=== PATIENT | male | born 1945 | race Caucasian/White ===

== ENCOUNTER 2017-04-04 20:12 | Inpatient (IN) | payer OTHER ==
[~2017-04-04] VITALS: Ht 190.5 cm; Wt 112.2 kg
[2017-04-04 22:19] LABS: Basophils # (auto) 0.1 uL; Basophils % (auto) 0.4 % (0.0-2.0); Eosinophils # (auto) 0 uL; Hematocrit 45.4 % (41.0-53.0); Hemoglobin 15.1 g/dL (13.5-17.5); Lymphocytes # (auto) 1.8 uL; Lymphocytes % (auto) 9.6 % (10.0-50.0); Mean Corpuscular Hemoglobin 29.7 pg (28.0-32.0); Mean Corpuscular Hgb Conc. 33.2 g/dL (32.0-36.0); Mean Corpuscular Volume 89.5 fL (80.0-100.0); Mean Platelet Volume 8.4 fL (6.9-10.8); Monocytes # (auto) 1.3 uL; Monocytes % (auto) 7.1 % (0.0-12.0); Neutrophils # (auto) 15.8 uL; Neutrophils % (auto) 82.9 % (37.0-80.0); Nucleated Red Blood Cells % 0.1 %; Platelet Count (auto) 200 10^3/uL (140-450); Red Cell Distribution Width 14.1 % (11.8-14.3)
[2017-04-04 22:40] LABS: Chloride 107 mmol/L (98-107); Potassium 3.6 mmol/L (3.5-5.1); Sodium 139 mmol/L (136-145)
[2017-04-04] MEDS ORDERED: SODIUM CHLORIDE 0.9% 1,000 ML IV ONE (22:45)
[2017-04-04 22:46] LABS: Albumin 3.8 g/dL (3.4-5.0); Anion Gap 8 (5-15); Aspartate Aminotransferase 9 U/L (15-37); Blood Urea Nitrogen 23 mg/dL (7-18); Calcium 8.8 mg/dL (8.5-10.1); Carbon Dioxide 24 mmol/L (21-32); GFR African American 62 mL/min; GFR Non-African American 51 mL/min; Glucose 118 mg/dL (74-106); Magnesium 2.3 mg/dL (1.6-2.6)
[2017-04-04 22:47] LABS: INR 1.13 (0.9-1.15); Partial Thromboplastin Time 26.9 sec (22.64-33.71); Prothrombin Time 12.3 sec (9.37-12.3)
[2017-04-04 22:51] LABS: Alkaline Phosphatase 75 U/L (45-117); Bilirubin, Total 1.5 mg/dL (0.2-1.0); Total Protein 7.8 g/dL (6.4-8.2)
[2017-04-05] MEDS ORDERED: SODIUM CHLORIDE 0.9% 1,000 ML IV SCH (07:32)
[2017-04-05] MEDS ORDERED: TEMAZEPAM 15 MG CAP PO PRN (07:45)
[2017-04-05] MEDS ORDERED: ONDANSETRON HCL 4 MG/2 ML VIAL IV PRN (07:45)
[2017-04-05] MEDS ORDERED: cloNIDine HCL 0.1 MG TAB PO PRN (07:45)
[2017-04-05] MEDS ORDERED: DEXTROSE (50%) 50ML SYRG IV PRN (07:45)
[2017-04-05] MEDS ORDERED: HYDROcodone-ACET 5/325MG TAB PO PRN (07:45)
[2017-04-05] MEDS ORDERED: NITROGLYCERIN 0.4 MG SL TAB SL PRN (07:45)
[2017-04-05] MEDS ORDERED: ACETAMINOPHEN 325 MG TAB PO PRN (07:45)
[2017-04-05] MEDS ORDERED: MORPHINE SULF INJ 2 MG/ML SYRINGE 1ML IV PRN ×2 (07:45)
[2017-04-05] MEDS ORDERED: SODIUM CHLORIDE 0.9% 500 ML IV ONE (07:45)
[2017-04-05] MEDS: LEVOFLOXACIN 500MG 100 ML IV SCH ×2 (09:05→10:00)
[2017-04-05] MEDS: SODIUM CHLORIDE 0.9% 1,000 ML IV SCH ×2 (09:05→23:46)
[2017-04-05 10:13] VITALS: BP 145/61
[2017-04-05] MEDS: LISINOPRIL 10 MG TAB PO SCH (10:16)
[2017-04-05] MEDS: PANTOPRAZOLE 40 MG TAB PO SCH (10:16)
[2017-04-05] MEDS: ENOXAPARIN SOD 40 MG/0.4 ML SYRINGE SC SCH (10:17)
[2017-04-05] MEDS: ASPirin 81 mg TAB PO SCH (10:17)
[2017-04-05 10:22] VITALS: BP 145/61
[2017-04-05] MEDS: InsuLIN REG 1unit/0.01ml Soln (100units/ml) SC SCH ×3 (10:55→23:47)
[2017-04-05] MEDS: ACCU-CHEK COMFORT CURVE STRIP VI SCH ×3 (10:55→23:47)
[2017-04-05 13:00] VITALS: BP 146/55
[2017-04-05] MEDS ORDERED: BUPR100T14 PO (13:24)
[2017-04-05] MEDS ORDERED: CLON2TAB3 PO (13:28)
[2017-04-05] MEDS ORDERED: LOVA40TA72 PO (13:28)
[2017-04-05] MEDS ORDERED: GLIP-115 PO (13:28)
[2017-04-05] MEDS ORDERED: CINN500T PO (13:28)
[2017-04-05] MEDS ORDERED: TERA1CAP33 PO (13:28)
[2017-04-05] MEDS ORDERED: ASPI81TA27 PO (13:28)
[2017-04-05] MEDS ORDERED: CAPT12.52 PO (13:28)
[2017-04-05] MEDS ORDERED: METF-370 PO (13:28)
[2017-04-05 14:58] LABS: Urine Bilirubin Negative (Negative); Urine Blood 3+ /uL (Negative); Urine Color PINK (Yellow); Urine Glucose Normal (Normal); Urine Ketone Negative (Negative); Urine Mucus FEW (None Seen); Urine Nitrite Negative (Negative); Urine RBC 851 /hpf (0 - 3); Urine Squamous Epithelial Cell FEW /hpf (<5)
[2017-04-05 17:48] VITALS: BP 154/59
[2017-04-05 22:00] VITALS: BP 153/75
[2017-04-06 05:22] LABS: Basophils # (auto) 0 uL; Basophils % (auto) 0.4 % (0.0-2.0); Eosinophils # (auto) 0.1 uL; Eosinophils % (auto) 0.7 % (0.0-7.0); Hemoglobin 12.9 g/dL (13.5-17.5); Lymphocytes # (auto) 1.4 uL; Lymphocytes % (auto) 11.4 % (10.0-50.0); Mean Corpuscular Hemoglobin 29.6 pg (28.0-32.0); Mean Corpuscular Hgb Conc. 33.1 g/dL (32.0-36.0); Mean Corpuscular Volume 89.6 fL (80.0-100.0); Mean Platelet Volume 8.4 fL (6.9-10.8); Monocytes # (auto) 1.1 uL; Monocytes % (auto) 8.7 % (0.0-12.0); Neutrophils # (auto) 9.8 uL; Neutrophils % (auto) 78.8 % (37.0-80.0); Nucleated Red Blood Cells % 0.1 %; Platelet Count (auto) 154 10^3/uL (140-450); Red Cell Distribution Width 13.8 % (11.8-14.3); White Blood Cell 12.5 10^3/uL (4.4-10.8)
[2017-04-06 05:30] VITALS: BP 153/69
[2017-04-06 05:41] LABS: Potassium 3.9 mmol/L (3.5-5.1)
[2017-04-06 05:46] LABS: Albumin 2.9 g/dL (3.4-5.0); BUN/Creatinine Ratio 21.8; Calcium 7.7 mg/dL (8.5-10.1)
[2017-04-06 05:49] LABS: Bilirubin, Total 0.7 mg/dL (0.2-1.0); Total Protein 6.4 g/dL (6.4-8.2)
[2017-04-06] MEDS: InsuLIN REG 1unit/0.01ml Soln (100units/ml) SC SCH ×3 (06:36→18:07)
[2017-04-06] MEDS: ACCU-CHEK COMFORT CURVE STRIP VI SCH ×3 (06:36→18:06)
[2017-04-06] MEDS: PANTOPRAZOLE 40 MG TAB PO SCH (08:57)
[2017-04-06] MEDS: LISINOPRIL 10 MG TAB PO SCH (08:58)
[2017-04-06] MEDS: LEVOFLOXACIN 500MG 100 ML IV SCH (08:58)
[2017-04-06] MEDS: ASPirin 81 mg TAB PO SCH (08:58)
[2017-04-06] MEDS: ENOXAPARIN SOD 40 MG/0.4 ML SYRINGE SC SCH (08:58)
[2017-04-06 09:00] VITALS: BP 181/76
[2017-04-06] MEDS ORDERED: MORPHINE SULF INJ 2 MG/ML SYRINGE 1ML IV PRN (11:45)
[2017-04-06] MEDS: SODIUM CHLORIDE 0.9% 1,000 ML IV SCH (12:17)
[2017-04-06] MEDS ORDERED: LISINOPRIL 10 MG TAB PO ONE (12:30)
[2017-04-06 13:00] VITALS: BP 180/67
[2017-04-06 16:21] VITALS: BP 164/74
[2017-04-06 17:00] VITALS: BP 164/68
[2017-04-06 20:55] LABS: Cholesterol 110 mg/dL (< 200); HDL Cholesterol 30 mg/dL (40-59); LDL Cholesterol 70 mg/dL (< 100); Triglycerides 96 mg/dL (< 150)
[2017-04-06] MEDS: ATORVASTATIN 20 MG TAB PO SCH (22:00)
[2017-04-06] MEDS ORDERED: LORazepam 2MG/ML-1ML VIAL IV PRN (22:45)
[2017-04-07] MEDS: ACCU-CHEK COMFORT CURVE STRIP VI SCH ×5 (00:04→22:48)
[2017-04-07] MEDS: InsuLIN REG 1unit/0.01ml Soln (100units/ml) SC SCH ×5 (00:08→22:48)
[2017-04-07] MEDS: SODIUM CHLORIDE 0.9% 1,000 ML IV SCH (04:25)
[2017-04-07 06:00] VITALS: BP 179/65
[2017-04-07 07:09] VITALS: BP 155/57
[2017-04-07] MEDS ORDERED: LIDOCAINE 2%HCL (LOCAL ANESTH.) INJ 20ML MDV ONE (07:28)
[2017-04-07 07:44] LABS: Basophils # (auto) 0 uL; Basophils % (auto) 0.5 % (0.0-2.0); Eosinophils # (auto) 0 uL; Eosinophils % (auto) 0.5 % (0.0-7.0); Hematocrit 39.2 % (41.0-53.0); Hemoglobin 13.5 g/dL (13.5-17.5); Lymphocytes # (auto) 1.2 uL; Lymphocytes % (auto) 13.2 % (10.0-50.0); Mean Corpuscular Hemoglobin 30.2 pg (28.0-32.0); Mean Corpuscular Hgb Conc. 34.6 g/dL (32.0-36.0); Mean Corpuscular Volume 87.4 fL (80.0-100.0); Mean Platelet Volume 8.7 fL (6.9-10.8); Monocytes # (auto) 0.9 uL; Monocytes % (auto) 9.7 % (0.0-12.0); Neutrophils % (auto) 76.1 % (37.0-80.0); Platelet Count (auto) 169 10^3/uL (140-450); Red Cell Distribution Width 13.5 % (11.8-14.3); White Blood Cell 9.1 10^3/uL (4.4-10.8)
[2017-04-07] MEDS ORDERED: VANCOMYCIN HCL 1000 MG VL IR ONE (07:45)
[2017-04-07] MEDS ORDERED: ceFAZolin 1GM/50ML 50 ML IV ONE (07:45)
[2017-04-07] MEDS ORDERED: VANCOMYCIN 1GM/250ML 250 ML IV ONE (07:45)
[2017-04-07 07:55] LABS: BUN/Creatinine Ratio 17.4; Calcium 8.1 mg/dL (8.5-10.1); Potassium 3.7 mmol/L (3.5-5.1)
[2017-04-07] MEDS ORDERED: fentaNYL CITRATE 100 MCG/2 ML VL ONE (08:32)
[2017-04-07] MEDS ORDERED: MIDAZOLAM HCL 1MG/1ML-2 ML VIAL ONE (08:32)
[2017-04-07] MEDS ORDERED: ENALAPRILAT 1.25 MG/ML-1ML VIAL IV ONE (08:42)
[2017-04-07 09:19] LABS: Temperature: 22.8 C (20.0-25.0)
[2017-04-07] MEDS ORDERED: GELATIN 1 SPONGE SIZE 100 TOP ONE (09:22)
[2017-04-07] MEDS: ENOXAPARIN SOD 40 MG/0.4 ML SYRINGE SC SCH (12:03)
[2017-04-07] MEDS: PANTOPRAZOLE 40 MG TAB PO SCH (12:04)
[2017-04-07] MEDS: LEVOFLOXACIN 500MG 100 ML IV SCH (12:04)
[2017-04-07] MEDS: ASPirin 81 mg TAB PO SCH (12:04)
[2017-04-07] MEDS: LISINOPRIL 20 MG TAB PO SCH (12:04)
[2017-04-07] MEDS ORDERED: amLODIPine BESYLATE 5 MG TAB PO ONE (16:00)
[2017-04-07] MEDS ORDERED: SODIUM CHLORIDE 0.9% 1,000 ML IV SCH (20:00)
[2017-04-07] MEDS ORDERED: CYANOCOBALAMIN (B-12) 1000 MCG/1 ML VIAL IM ONE (20:15)
[2017-04-07] MEDS ORDERED: HALOPERIDOL LACTATE 5 MG/ML INJ VIAL IV PRN (20:15)
[2017-04-07 22:00] VITALS: BP 169/79
[2017-04-07] MEDS ORDERED: VANCOMYCIN 1GM/250ML 250 ML IV SCH (22:00)
[2017-04-07] MEDS ORDERED: cloNIDine HCL 0.1 MG TAB PO ONE (22:15)
[2017-04-07] MEDS: ATORVASTATIN 20 MG TAB PO SCH (22:48)
[2017-04-08 05:00] VITALS: BP 144/72
[2017-04-08] MEDS: ACCU-CHEK COMFORT CURVE STRIP VI SCH ×2 (06:05→12:14)
[2017-04-08] MEDS: InsuLIN REG 1unit/0.01ml Soln (100units/ml) SC SCH ×2 (06:05→12:14)
[2017-04-08 06:17] LABS: Basophils # (auto) 0.1 uL; Basophils % (auto) 0.8 % (0.0-2.0); Eosinophils # (auto) 0.1 uL; Eosinophils % (auto) 1.3 % (0.0-7.0); Hematocrit 37.9 % (41.0-53.0); Hemoglobin 13.3 g/dL (13.5-17.5); Lymphocytes # (auto) 1.2 uL; Lymphocytes % (auto) 15.4 % (10.0-50.0); Mean Corpuscular Hemoglobin 30.9 pg (28.0-32.0); Mean Corpuscular Hgb Conc. 35.2 g/dL (32.0-36.0); Mean Corpuscular Volume 87.8 fL (80.0-100.0); Mean Platelet Volume 8.7 fL (6.9-10.8); Monocytes # (auto) 0.9 uL; Neutrophils # (auto) 5.5 uL; Neutrophils % (auto) 70.5 % (37.0-80.0); Platelet Count (auto) 176 10^3/uL (140-450); Red Cell Distribution Width 13.6 % (11.8-14.3); White Blood Cell 7.8 10^3/uL (4.4-10.8)
[2017-04-08 06:37] LABS: BUN/Creatinine Ratio 16.5; Magnesium 2.5 mg/dL (1.6-2.6); Potassium 3.7 mmol/L (3.5-5.1)
[2017-04-08 08:52] VITALS: BP 156/82
[2017-04-08] MEDS ORDERED: AML5T PO (09:28)
[2017-04-08] MEDS: ENOXAPARIN SOD 40 MG/0.4 ML SYRINGE SC SCH (09:57)
[2017-04-08] MEDS: ASPirin 81 mg TAB PO SCH (09:58)
[2017-04-08] MEDS: LISINOPRIL 20 MG TAB PO SCH (09:59)
[2017-04-08] MEDS: PANTOPRAZOLE 40 MG TAB PO SCH (09:59)
[2017-04-08] MEDS: LEVOFLOXACIN 500MG 100 ML IV SCH (10:00)
[2017-04-08] MEDS ORDERED: CYANOCOBALAMIN 500 MCG TAB PO SCH (10:00)
[2017-04-08] MEDS ORDERED: amLODIPine BESYLATE 5 MG TAB PO SCH (10:00)
[2017-04-08] MEDS ORDERED: LEVO500T21 PO (10:34)
[2017-04-08] MEDS ORDERED: LISI-646 PO (12:14)
[2017-04-08 12:27] VITALS: BP 155/60
[2017-04-08 15:45] VITALS: BP 155/60
[2017-04-08 16:50] VITALS: BP 148/69
== END 2017-04-08 19:51 | disposition home health service (06) | DRG 871 ==
LOC: ER 20:12 → TELE 20:13 → TELE-EAST 04-05 09:45 → TELE-CENTR 04-06 23:02
PROVIDERS: ADMIT Nurse Practitioner; ATTEND Internal Medicine
PROC: 0JH606Z Insertion of Pacemaker, Dual Chamber into Chest Subcutaneous Tissue and Fascia, Open Approach (ICD-10-PCS; principal; 2017-04-07)
PROC: 02H63JZ Insertion of Pacemaker Lead into Right Atrium, Percutaneous Approach (ICD-10-PCS; 2017-04-07)
PROC: 02HK3JZ Insertion of Pacemaker Lead into Right Ventricle, Percutaneous Approach (ICD-10-PCS; 2017-04-07)
DX: A41.9 Sepsis, unspecified organism (principal); N17.0 Acute kidney failure with tubular necrosis; I44.2 Atrioventricular block, complete; G92 Toxic encephalopathy; E11.21 Type 2 diabetes mellitus with diabetic nephropathy; I45.89 Other specified conduction disorders; I48.91 Unspecified atrial fibrillation; I49.5 Sick sinus syndrome; G47.50 Parasomnia, unspecified; N39.0 Urinary tract infection, site not specified; W18.30XA Fall on same level, unspecified, initial encounter; G30.9 Alzheimer's disease, unspecified; E78.5 Hyperlipidemia, unspecified; I13.10 Hypertensive heart and chronic kidney disease without heart failure, with stage 1 through stage 4 chronic kidney disease, or unspecified chronic kidney disease; I25.10 Atherosclerotic heart disease of native coronary artery without angina pectoris; N18.9 Chronic kidney disease, unspecified; R32 Unspecified urinary incontinence; N40.1 Benign prostatic hyperplasia with lower urinary tract symptoms; S09.90XA Unspecified injury of head, initial encounter; R56.9 Unspecified convulsions; F02.80 Dementia in other diseases classified elsewhere, unspecified severity, without behavioral disturbance, psychotic disturbance, mood disturbance, and anxiety; Z95.5 Presence of coronary angioplasty implant and graft; Z83.3 Family history of diabetes mellitus; Z79.899 Other long term (current) drug therapy; Z79.82 Long term (current) use of aspirin; Z86.711 Personal history of pulmonary embolism; Y93.89 Activity, other specified; Y92.89 Other specified places as the place of occurrence of the external cause; Y99.8 Other external cause status
CPT/HCPCS: 33208; 36415; 51702; 70450; 71010; 76700; 80048; 80053; 80061; 80307; 80320; 81001; 82607; 82746; 82962; 83036; 83605; 83735; 84443; 84484; 85025; 85610; 85730; 87040; 87086; 93005; 93306; 93886; 95819; 99152; 99153; C1785; J0690; J1815; J1956; J2250

== ENCOUNTER 2019-05-17 13:33 | Emergency (ER) | payer OTHER ==
[~2019-05-17] VITALS: Ht 188 cm; Wt 106.1 kg
[~2019-05-17 13:33] MED LIST: AML5T PO; ASPI-404 PO; BUPR100T14 PO; CINN500T PO; CLON-707 PO; GLIP5TAB12 PO; LEVO500T21 PO; LISI-646 PO; LOVA40TA72 PO; METF-370 PO; TERA1CAP33 PO
[2019-05-17 14:26] LABS: Basophils # (auto) 0.1 uL; Eosinophils # (auto) 0.1 uL; Eosinophils % (auto) 1.5 % (0.0-7.0); Hematocrit 44.8 % (41.0-53.0); Hemoglobin 15.3 g/dL (13.5-17.5); Lymphocytes # (auto) 0.9 uL; Lymphocytes % (auto) 12.6 % (10.0-50.0); Mean Corpuscular Hemoglobin 29.8 pg (28.0-32.0); Mean Corpuscular Hgb Conc. 34.3 g/dL (32.0-36.0); Monocytes # (auto) 0.6 uL; Monocytes % (auto) 8.4 % (0.0-12.0); Neutrophils # (auto) 5.4 uL; Neutrophils % (auto) 76.5 % (37.0-80.0); Platelet Count (auto) 181 10^3/uL (140-450); Red Blood Cells 5.15 10^6/uL (4.5-5.90); Red Cell Distribution Width 13.7 % (11.8-14.3)
[2019-05-17 14:46] LABS: Albumin 3.3 g/dL (3.4-5.0); Calcium 8.6 mg/dL (8.5-10.1)
[2019-05-17 14:49] LABS: BUN/Creatinine Ratio 18.3; Bilirubin, Total 0.6 mg/dL (0.2-1.0); Total Protein 6.9 g/dL (6.4-8.2)
[2019-05-17 21:12] VITALS: BP 168/81
== END 2019-05-17 22:11 | disposition home or self-care (01) ==
LOC: ER 13:33
DX: R55 Syncope and collapse (principal); Z95.0 Presence of cardiac pacemaker; I48.91 Unspecified atrial fibrillation; I25.10 Atherosclerotic heart disease of native coronary artery without angina pectoris; E11.9 Type 2 diabetes mellitus without complications
CPT/HCPCS: 36415; 70450; 80053; 84484; 85025; 93005